=== PATIENT | female | born 1995 | race Two or more races ===

== ENCOUNTER 2021-02-24 04:00 | Emergency (ER) | payer MEDICAID ==
[~2021-02-24] VITALS: Ht 154.9 cm; Wt 49.0 kg
[2021-02-24] MEDS ORDERED: ONDANSETRON HCL 4MG/2ML INJ IV STA (04:40)
[2021-02-24] MEDS ORDERED: SODIUM CHLORIDE 0.9% 1,000 ML IV ONE (04:45)
[2021-02-24 05:33] LABS: BASOPHILS % 0.5 % (0.0-2.0); EOSINOPHILS % 0.2 % (0.0-5.0); HEMATOCRIT. 41.4 % (36.0-48.0); HEMOGLOBIN. 14.4 g/dL (12.0-16.0); LYMPHOCYTES % 27.9 % (20.0-50.0); MEAN CORPUSCULAR HEMOGLOBIN 31.9 pg (28.0-32.0); MEAN CORPUSCULAR VOLUME 91.5 fL (81.0-99.0); MEAN PLATELET VOLUME 8.4 fl (7.4-10.4); MONOCYTES % 6.8 % (2.0-8.0); NEUTROPHILS % 64.6 % (40.0-76.0); PLATELET 318 x1000/uL (130-400); RED BLOOD CELL COUNT 4.53 mill/uL (4.2-5.4); RED CELL DISTRIBUTION WIDTH 12.7 % (11.6-14.6)
[2021-02-24 05:40] LABS: CHLORIDE 110 mEq/L (98-107)
[2021-02-24 05:50] LABS: ETHANOL BLOOD 292 mg/dL
[2021-02-24 13:00] VITALS: BP 106/64
== END 2021-02-24 13:30 | disposition home or self-care (01) ==
LOC: ER 04:00
DX: F10.129 Alcohol abuse with intoxication, unspecified (principal); Y90.8 Blood alcohol level of 240 mg/100 ml or more
CPT/HCPCS: 36415; 80053; 80320; 85025; 96361; 96374; 99285; J2405; J7030; G0480